=== PATIENT | female | born 1985 | race Caucasian/White ===

== ENCOUNTER 2023-11-21 16:19 | Emergency (ER) | payer OTHER ==
[2023-11-21 16:32] VITALS: BP 113/60; PULSE 83; RESP 18; TEMP 97.9; BMI 23.8
== END 2023-11-21 19:20 | disposition home or self-care (01) ==
LOC: JER 16:19
DX: F11.90 Opioid use, unspecified, uncomplicated (principal); R11.2 Nausea with vomiting, unspecified; R10.9 Unspecified abdominal pain
CPT/HCPCS: 82962; 84703; 93005; 93010; 99283-25